=== PATIENT | male | born 1975 | race Caucasian/White ===

== ENCOUNTER 2023-02-04 20:06 | Emergency (ER) | payer OTHER, SELFPAY ==
[2023-02-04 20:07] VITALS: BP 133/66; PULSE 85; RESP 15; TEMP 36.5; O2SAT 98; BMI 30.8
--- NOTE | 2023-02-04 20:34 | RAD_ITS ---
STUDY: X-RAY - LEFT SHOULDER REASON FOR EXAM: Male, 47 years old. pain TECHNIQUE: 4 view(s) of the shoulder. COMPARISON: None. FINDINGS: Narrowed glenohumeral articulation. Normal acromioclavicular joint. Normal acromion. Normal humeral head and visualized proximal humerus. The soft tissue structures are unremarkable. Normal visualized pulmonary apex. RAD/Shoulder min 2 Views IMPRESSION: Degenerative changes. No acute fracture or dislocation Electronically Signed: Cody Hendrix MD at 20:57 EDT ,
--- NOTE | 2023-02-04 21:28 | EX.ED.UPPERE ---
HPI History of Present Illness Chief Complaint: Upper Extremity Injury Informant: patient and spouse/S.O. Narrative Narrative: [id number] male presents worsening pain left neck rating down his scapula and left upper arm. Mild symptoms prior to the weekend today was looking up when he felt a pop. He went to his primary care office seen by provider given Toradol shot and placed on muscle relaxer with meloxicam. Symptoms persisting. He comes here. No history of similar. No previous neck issues in the past. [facility] Medical History Acute bronchitis, unspecified Asthmatic bronchitis Home Medications albuterol sulfate 90 mcg/actuation breath activated powder inhaler 2 inh inhalation Q6H PRN shortness of breath or wheezing #1 ea 04/24/22 [Rx Last Taken Unknown] azithromycin 250 mg tablet 250 mg PO QDAY #6 tabs 04/24/22 [Rx Last Taken Unknown] gabapentin 300 mg capsule 300 mg PO QHS #30 caps 02/04/23 [Rx Last Taken Unknown] oxycodone-acetaminophen 5 mg-325 mg tablet (Percocet) 1 tab PO Q6H pain 3 days #12 tabs 02/04/23 [Rx Last Taken Unknown] prednisone 20 mg tablet 60 mg (3 x 20 mg) PO DAILY #12 TABLETS 02/04/23 [Rx Last Taken Unknown] Allergy/AdvReac Type Severity Reaction Status Date / Time No Known Allergies Allergy Verified 02/04/23 20:11 Social History Smoking Status: Former smoker ROS ROS ED Constitutional Constitutional ED: Denies chills, fever(s) or sweats Eyes Eyes: Denies change in vision ENT ENT ED: Denies dysphagia or sore throat Cardiovascular Cardiovascular: Denies chest pain, leg edema, palpitations or racing heartbeat Respiratory/Chest Respiratory/Chest: Denies cough, dyspnea or dyspnea on exertion Gastrointestinal Gastrointestinal: Denies abdominal pain, diarrhea, nausea or vomiting Genitourinary Genitourinary ED: Denies dysuria, hematuria or urinary frequency Musculoskeletal Musculoskeletal: Reports back pain, extremity pain and neck pain Integumentary Denies rash or wounds Neurologic Neurologic: Denies headache(s), paresthesias or weakness EXAM Physical Exam Const Vital Signs: 02/04/23 20:07 Temperature 97.7 F L Temperature Source Temporal Pulse Rate 85 Respiratory Rate 15 Blood Pressure 133/66 H Blood Pressure Mean 88 Pulse Ox 98 Oxygen Delivery Method Room Air Positive well nourished and well developed Constitutional Narrative: Uncomfortable nontoxic General Appearance ED: well developed HEENT Reports moist mucous membranes normocephalic and atraumatic Eyes PERRL, EOMs intact bilaterally and conjunctivae normal General Eye ED: Yes normal appearance of both eyes Neck full ROM, no lymphadenopathy and supple Neck Narrative: Spurling's test did elicit sensation down his medial scapula on the left. Symptoms improved with flexion sidebending to the right. General: Negative for tenderness Chest Wall Chest: Negative for tenderness Resp normal respiratory effort and normal air movement Effort and Inspection: symmetric chest movement; Negative for respiratory distress Cardio regular rate, regular rhythm and no murmurs Peripheral Pulses: pulses 2+ throughout GI normal to inspection, nondistended, normoactive bowel sounds and non-tender Palpation: Negative for guarding or rebound tenderness present Back/Spine no CVA tenderness and no thoracic nor lumbar tenderness Extremity normal to inspection General Extremety ED: Negative for edema or tenderness General Extremity: Negative for edema Neuro oriented x3 and no sensory deficits noted Sensorium / Orientation: awake and alert Skin no rashes or lesions noted and no wounds MDM MDM MDM Narrative Medical decision making narrative: Interventions / MDM: This Differential diagnosis: Cervical radiculopathy Diagnosis considered but do not suspect: N/A My EKG interpretation: N/A Imaging independently reviewed and interpreted by myself: Left shoulder 3 views: No acute process. Cervical spine 3 views: No acute process. External documents reviewed: N/A Test considered but not ordered:N/A ED course: Patient history exam consistent with cervical radiculopathy more pronounced at C4 his pain goes to his upper arm. Pain down his medial scapular area consistent with a long thoracic nerve irritation. Started on gabapentin in the ED. Triage ordered left shoulder x-ray which reviewed and negative. Added cervical films for evaluation. Cervical spasms with no acute findings. Had persistent pain in the ED started on steroids and oxycodone was given. Initial nursing triage noted tramadol however is given Toradol injection with his muscle relaxer. I discussed symptomatic treatment with medications. Meds to bed with gabapentin oxycodone and prednisone. He will follow-up with PCP reevaluation further testing as needed. All questions were answered. Re-evaluation: stable Disposition discussed with patient/family/significant other: Patient and significant other Case discussed with consulting clinician: N/A This note was generated with [employer] dictation software. It may contain incorrect words, spelling, and punctuation that were not noted in checking the note before signing. Radiography Diagnostic Testing: Clinical Impression(s) from Imaging Studies Shoulder X-Ray 02/04/23 20:34 IMPRESSION: Degenerative changes. No acute fracture or dislocation Electronically Signed: Cody Hendirx MD at 20:57 EDT Reading Location ID and State: [facility] / [place] Tel , Service support , Discharge Plan Triage Chief Complaint: Upper Extremity Injury ED Provider: Kaleb Johnson Dx/Rx/DC Orders Clinical Impression: Cervical radiculopathy Instructions: ED Radiculopathy, Cervical Prescriptions: New oxycodone-acetaminophen [Percocet] 5-325 mg tablet 1 tab PO Q6H 3 Days Qty: 12 0RF prednisone 20 mg tablet 60 mg PO DAILY Qty: 12 0RF gabapentin 300 mg capsule 300 mg PO QHS Qty: 30 0RF No Action albuterol sulfate 90 mcg/actuation aerosol powdr breath activated 2 inh inhalation Q6H PRN (Reason: shortness of breath or wheezing) Qty: 1 0RF azithromycin 250 mg tablet 250 mg PO QDAY Qty: 6 0RF Rx Instructions: 2 tablets today, then 1 tablet daily on days 2 through 5 Primary Care Provider: Franklyn López Referrals: Franklyn López MD [Primary Care Provider] - 2 Days Activity Restrictions/Additional Instructions: Your symptoms consistent with cervical radiculopathy on the left side more pronounced at C4. Cervical x-ray was negative for any acute findings. Shoulder x-ray negative. Continue your meloxicam muscle relaxer as needed. Take gabapentin as prescribed. Take steroids as prescribed. Additional oxycodone as needed. Follow-up with your doctor reevaluation further treatment and testing. Disposition Disposition: Home, Self Care Discharge Date/Time: 02/04/23 23:41
[2023-02-04] MEDS: Gabapentin 300 MG Capsule PO (21:53)
--- NOTE | 2023-02-04 21:55 | RAD_ITS ---
STUDY: X-RAY - CERVICAL SPINE REASON FOR EXAM: Male, 47 years old. radiculopathy TECHNIQUE: 4 view(s) of the cervical spine were obtained. COMPARISON: None FINDINGS: Normal anterior atlantoaxial articulation. Normal odontoid process. Straightening of normal lordotic curvature possibly due to muscle spasm or positioning artifact. Normal vertebral bodies and endplates. Normal disc space heights. Normal visualized intervertebral neuroforamina. The soft tissue structures are unremarkable. RAD/Cerv Spine 2 or 3 Views IMPRESSION: Straightening of normal lordotic curvature otherwise normal x-ray examination of the visualized cervical spine. Electronically Signed: Cody Hendrix MD at 22:28 EDT ,
[2023-02-04] MEDS: oxyCODONE 5 MG Tablet PO (22:54)
[2023-02-04] MEDS: predniSONE 20 MG Tablet 60 MG PO (22:54)
== END 2023-02-04 23:41 | disposition home or self-care (01) ==
PROVIDERS: Emergency Provider Emergency Medicine; PCP Family Medicine; Visit Provider Emergency Medicine
DX: M54.12 Radiculopathy, cervical region (principal); Z87.891 Personal history of nicotine dependence; X58.XXXA Exposure to other specified factors, initial encounter
CPT/HCPCS: 72040; 73030; 99282

== ENCOUNTER 2023-03-23 17:30 | Outpatient (RCR) | payer OTHER, SELFPAY ==
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
--- NOTE | 2023-08-10 15:57 | HP.PTDCNRP_ITS ---
Patient Information Patient Information: KURTIS CASTELLANOS was seen in my office for initial evaluation on 03/09/23. The following Plan of Care was established for this patient: POC Established Initial Frequency: 2-3x /Week Initial Duration: 4-6 Weeks Anticipated Interventions Patient/Client Instruction: Educate patient on: Condition, Plan of Care and Risk Factors For the Purpose of:: To improve self management Therapeutic Exercise to Include: Strength training, Body mechanics, Postural training, Flexibilty training, Neuromotor development and Scapular Strength/Stabilization For the Purpose of:: To decrease pain, To increase ROM, To improve muscle performance and motor function, To increase tolerance to activity/conditio n/position and To improve ability of physical actions for home/community/work/leisure Cryotherapy (ice pack, ice massage): Yes Thermo therapy (hot pack): Yes For the Purpose of:: To decrease pain and To improve nutrient delivery to tissue Last Seen Last Seen: This patient was last seen in our office 03/23/23. Pertinent comments regarding their Physical therapy will appear below: This patient has not returned to Physical Therapy and is appropriate to return to MD for further follow-up as needed. At this point I will be discontinuing this patient from physical therapy. I would be happy to see this patient again in the future if found appropriate by the physician. Thank you! Sendy Newman, PT, Cert MDT Balance/Gait/Functional tests Balance/Special Test Scores Oswestry Neck Score: 9
== END 2023-03-23 19:00 | disposition home or self-care (01) ==
LOC: PT 17:30
PROVIDERS: PCP Family Medicine; Referring Provider Orthopaedic Surgery Orthopaedic Surgery of the Spine; Visit Provider Orthopaedic Surgery Orthopaedic Surgery of the Spine
DX: M54.12 Radiculopathy, cervical region (principal)
CPT/HCPCS: 97110; 97162; 97530

== ENCOUNTER → 2023-04-06 | Outpatient (CLI) | payer OTHER, SELFPAY ==
--- NOTE | 2023-04-06 16:18 | MRI_ITS ---
STUDY: MRI CERVICAL SPINE WITHOUT CONTRAST REASON FOR EXAM: Male, 48 years old. shoulder, neck pain on Lt side [id number], weakness, no neck surgery TECHNIQUE: Standardized fat and water weighted pulse sequences were obtained in the sagittal and axial planes. COMPARISON: None FINDINGS: Normal foramen magnum and brainstem-cervical cord junction. Normal craniovertebral junction. Normal anterior atlantoaxial articulation. Normal odontoid process. There is straightening of the normal cervical lordosis. Normal vertebral bodies and posterior osseous elements. C2-3: Normal endplates. Mild disc desiccation. Normal disc height and morphology. Normal central canal and intervertebral neural foramina. C3-4: Normal endplates. Mild disc desiccation. Normal disc height and morphology. Normal central canal and intervertebral neural foramina. C4-5: Normal endplates. Mild disc desiccation. Normal disc height and morphology. Normal central canal and intervertebral neural foramina. C5-6: Diffuse disc desiccation with mild disc space narrowing and posterior annular bulging contributing to mild central canal stenosis. Mild mass effect on anterior aspect of the cord eccentric to the left. Normal central canal and left neural foramen. Mild right foraminal stenosis secondary to uncovertebral hypertrophy. C6-7: Mild to moderate disc space narrowing with a left paracentral inferior subligamentous moderate size disc extrusion measuring 9.6 mm in the craniocaudal dimension and 1.05 cm in width. The extruded disc material extends into the opening of the left neural foramen causing compression of exiting nerve root. Mild mass effect on anterior aspect of the cord is also demonstrated. Normal intervertebral neural foramina. C7-T1: Normal endplates. Normal disc height, signal and morphology. Normal central canal and intervertebral neural foramina. Normal cervical cord. There is no demonstrated cervical cord syrinx cavity. Normal visualized soft tissue structures. MRI/Spine Cervical (Routine) IMPRESSION: 1. Multilevel degenerative changes, as described above. 2. C6-7: Mild to moderate disc space narrowing with a left paracentral inferior subligamentous moderate size disc extrusion measuring 9.6 mm in the craniocaudal dimension and 1.05 cm in width. The extruded disc material extends into the opening of the left neural foramen causing compression of exiting nerve root. Mild mass effect on anterior aspect of the cord is also demonstrated. Normal intervertebral neural foramina. Electronically Signed: Taz Skinner MD at 11:56 EST ,
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
== END | disposition home or self-care (01) ==
LOC: MRI 16:06
PROVIDERS: PCP Family Medicine; Visit Provider Orthopaedic Surgery Orthopaedic Surgery of the Spine
DX: M54.12 Radiculopathy, cervical region (principal)
CPT/HCPCS: 70030; 72141